=== PATIENT | female | born 1965 | race Caucasian/White ===

== ENCOUNTER 2018-12-21 18:08 | Emergency (ER) | payer OTHER ==
--- NOTE | 2018-12-21 19:28 | C.PDOC ---
History Of Present Illness 53 year old female, with no significant past medical history, presents to ED for evaluation of foreign body sensation noticed around two hours prior to arrival. Patient states she was eating a traditional dish which includes chicken and thyme. While she was eating, patient had a sudden onset of foreign body sensation in her throat. She tried to eat some more rice and drink water without relief, but was able to tolerate PO. Patient attempted to make herself vomit, and states she threw up blood without relief of foreign body sensation. Patient is able to tolerate solid and liquid PO intake without difficulty, but presents to the ED for evaluation because she has pain. She denies shortness of breath, cough, nausea, abdominal pain, throat swelling, rash, headache, dizziness, or any other associated symptoms. Time Seen by Provider: 12/21/18 19:02 Chief Complaint (Nursing): Foreign Body History Per: Patient History/Exam Limitations: no limitations Onset/Duration Of Symptoms: Hrs (2) Current Symptoms Are (Timing): Still Present Additional History Per: Patient Past Medical History Reviewed: Historical Data, Nursing Documentation, Vital Signs Vital Signs: Last Vital Signs Temp 98.5 F 12/21/18 18: Pulse 80 12/21/18 18:19 Resp 16 12/21/18 18: BP 116/74 12/21/18 18: Pulse Ox 98 12/21/18 18:19 - Medical History PMH: No Chronic Diseases Surgical History: No Surg Hx Family History: States: Unknown Family Hx - Social History Hx Tobacco Use: No Hx Alcohol Use: No Hx Substance Use: No - Immunization History Hx Tetanus Toxoid Vaccination: No Hx Influenza Vaccination: No Hx Pneumococcal Vaccination: No Review Of Systems Constitutional: Negative for: Fever, Chills Eyes: Negative for: Vision Change ENT: Positive for: Throat Pain, Other (foreign body sensation to throat ). Negative for: Nose Congestion, Mouth Pain, Mouth Swelling, Throat Swelling Cardiovascular: Negative for: Chest Pain, Palpitations, Light Headedness Respiratory: Negative for: Cough, Shortness of Breath Gastrointestinal: Negative for: Nausea, Vomiting, Abdominal Pain, Diarrhea, Constipation Genitourinary: Negative for: Dysuria, Frequency Musculoskeletal: Negative for: Neck Pain, Back Pain Skin: Negative for: Rash Neurological: Negative for: Weakness, Numbness, Headache, Dizziness Physical Exam - Physical Exam Appears: Well, Non-toxic, No Acute Distress, Other (uncomfortable ) Skin: Normal Color, Warm, Dry Head: Atraumatic, Normacephalic Eye(s): bilateral: Normal Inspection Ear(s): Bilateral: Normal Nose: Normal Oral Mucosa: Moist Tongue: Normal Appearing Lips: Normal Appearing Teeth: Normal Dentition Throat: Normal, No Erythema, No Exudate, No Drooling, Other (no visible foreign body ) Neck: Normal, Normal ROM, No Midline Cervical Tenderness, No Paracervical Tenderness, Supple Chest: Symmetrical, No Deformity, No Tenderness Cardiovascular: Rhythm Regular, No Murmur Respiratory: Normal Breath Sounds, No Rales, No Rhonchi, No Wheezing Gastrointestinal/Abdominal: Soft, No Tenderness, No Guarding, No Rebound Extremity: Normal ROM, Capillary Refill (less than 2 seconds ) Extremity: Bilateral: Atraumatic, No Pedal Edema, Normal Color And Temperature, Normal ROM Pulses: Left Radial: Normal, Right Radial: Normal Neurological/Psych: Oriented x3, Normal Speech, Normal Cognition, Normal Motor, Normal Sensation Gait: Steady ED Course And Treatment O2 Sat by Pulse Oximetry: 98 (on RA ) Pulse Ox Interpretation: Normal - CT Scan/US Neck CT Other Rad Studies (CT/US): Read By Radiologist, Radiology Report Reviewed CT/US Interpretation: FINDINGS: PHARYNX: Unremarkable appearance of the nasopharynx, oropharyx, and hypopharynx. No pharyngeal mucosal based mass lesions. LARYNX: Normal appearance of the larynx. Unremarkable epiglottis. RETROPHARYNGEAL SPACE: No retropharyngeal soft tissue swelling or gas. SALIVARY GLANDS: No salivary gland abnormality evident. Unremarkable appearance of the parotid, submandibular, and sublingual glands. LYMPH NODES: No significant lymphadenopathy. A few non-enlarged submental and bilateral posterior chain lymph nodes are seen. THYROID: The thyroid gland is unremarkable. No nodule is evident. BONES: No acute osseous abnormality. No aggressive appearing osseous lesion. 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 There is evidence of mild degenerative disc disease at C5-6. PARANASAL SINUSES: Total opacification of the left maxillary antrum thought consistent with chronic left maxillary sinusitis. The remaining visualized paranasal sinuses appeared satisfactorily developed and aerated. MISCELLANEOUS: No radiopaque foreign bodies are identified. IMPRESSION: 1. No identification of radiopaque foreign body. 2. Several non-enlarged submental and bilateral posterior chain lymph nodes are present. 3. 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 4. Evidence of some degenerative disc disease at C5-6. 5. Chronic left maxillary sinusitis. Medical Decision Making Medical Decision Making: Plan: * CT Neck Soft Tissue * Lidocaine PO * reassess and disposition On initial exam, patient is in no acute distress and is resting comfortably in stretcher. Tolerating saliva without difficulty, no drooling, no vomiting, no difficulty breathing. Stable vital signs. Appears well. Progress: Xray soft tissue neck ordered by nursing, no abnormality visualized. Will get CT secondary to complaints of hematemesis and pain. CT Neck Soft Tissue ordered and reviewed, shows no foreign body or other abnormality. Pt tolerated PO, both solids and liquids in ED without difficulty. No drooling, no vomiting. Lidocaine PO given prior to discharge, patient reports immediate relief. Advised followup with ENT tomorrow. Pt states she will followup as instructed. Diagnostic testing results and plan of care discussed with patient. Strict instructions given regarding prescription use, importance of followup, and signs/symptoms to return to ER including vomiting, difficulty breathing, worsening pain, or any other new/worsening symptoms. Pt verbalized understanding of discussion. Patient is A&Ox3, ambulating with steady gait, with vital signs stable for discharge. Disposition - Disposition Referrals: Jesus Markham MD [Staff Provider] - Disposition: HOME/ ROUTINE Disposition Time: 21:50 Condition: IMPROVED Additional Instructions: Ibuprofen/tylenol for pain Followup with primary doctor within 2 days Followup with ENT tomorrow Return to ER with any new/worsening symptoms Instructions: Foreign Body, Swallowed, Adult Forms: General Discharge Instructions, [facility] (Italian), Work Excuse - Clinical Impression Clinical Impression: Foreign body sensation in throat - PA / [employer] / Resident Statement MD/DO has reviewed & agrees with the documentation as recorded. - Scribe Statement The provider has reviewed the documentation as recorded by the Scribe (Penny Torres) All medical record entries made by the Scribe were at my direction and personally dictated by me. I have reviewed the chart and agree that the record accurately reflects my personal performance of the history, physical exam, medical decision making, and the department course for this patient. I have also personally directed, reviewed, and agree with the discharge instructions and disposition.
[2018-12-21 22:03] VITALS: BP 110/71; PULSE 78; RESP 20; TEMP 98.2
[2018-12-22 01:45] VITALS: O2SAT 98
--- NOTE | 2018-12-22 09:34 | CT ---
Date of service: 12/21/2018 PROCEDURE: CT NECK WITHOUT CONTRAST HISTORY: rule out foreign body COMPARISON: None available. TECHNIQUE: CT of the neck without intravenous contrast. Coronal and sagittal reformats generated. Radiation dose: Total exam DLP = 515.36 mGy-cm. This CT exam was performed using one or more of the following dose reduction techniques: Automated exposure control, adjustment of the mA and/or kV according to patient size, and/or use of iterative reconstruction technique. FINDINGS: NASOPHARYNX: Unremarkable. SUPRAHYOID NECK: Unremarkable oropharynx, oral cavity, parapharyngeal space and retropharyngeal space. INFRAHYOID NECK: Unremarkable larynx, hypopharynx, and supraglottic space. Vocal cords intact. MASS: None. GLANDS: Parotid and submandibular glands unremarkable. Normal size thyroid gland, without nodule. LYMPH NODES: Shotty subcentimeter level 1 and 2 nodes. No enlarged cervical lymph nodes. CERVICAL SPINE: Degenerative disc disease C5-6. Otherwise unremarkable. OTHER FINDINGS: There is almost complete opacification of left maxillary sinus with curvilinear areas of high attenuation consistent with allergic fungal sinusitis. IMPRESSION: No radiopaque foreign body identified. Probable allergic fungal sinusitis of the left maxillary sinus. Degenerative disc disease of cervical spine at C5-6. The preliminary findings for this examination were reported by [facility] at 9:37 p.m. on 12/21/2018. There is discordance of this report with the preliminary findings. Please note that the diagnosis of allergic fungal sinusitis was not included in the preliminary report of this examination.
--- NOTE | 2018-12-22 13:14 | RAD ---
Date of service: 12/21/2018 HISTORY: Possible foreign body COMPARISON: None. FINDINGS: There is a tiny radiopaque density in the region of the esophagus seen anterior to the C7 vertebral body. IMPRESSION: Possible esophageal foreign body anterior to the C7 vertebral body. Subsequent CT scan of the neck failed to demonstrate corresponding structure.
== END 2018-12-21 22:03 | disposition home or self-care (01) ==
LOC: C.ER 18:08
DX: R09.89 Other specified symptoms and signs involving the circulatory and respiratory systems (principal)

== ENCOUNTER 2019-01-30 12:27 | Emergency (ER) | payer OTHER ==
[2019-01-30 12:39] VITALS: BMI 24.3
[2019-01-30 12:41] VITALS: BP 129/84; PULSE 88; RESP 17; TEMP 99; O2SAT 100
--- NOTE | 2019-01-30 13:44 | C.PDOC ---
History Of Present Illness 53 y/o female c/o facial pain and frontal headache for last 3 days; pt reports she had sinusitis incidentally found on ct scan at ED visit one month ago approx. pt saw Dr Markham. took 2 weeks antibiotics and followed up with Dr Markham once, but missed 2nd f/u visit. pt taking naproxen without relief. denies fever and chills, no nasal drainage. pt also c/o left buttock pain; sts she recently did a split and heard something 'pop'. denies numbness and tingling. denies extremity weakenss. Time Seen by Provider: 01/30/19 13:11 Chief Complaint (Nursing): ENT Problem History Per: Patient History/Exam Limitations: no limitations Onset/Duration Of Symptoms: Days (14) Current Symptoms Are (Timing): Worse Severity: Moderate Past Medical History Reviewed: Historical Data, Nursing Documentation, Vital Signs Vital Signs: Last Vital Signs Temp 99.0 F 01/30/19 12:40 Pulse 88 01/30/19 12:40 Resp 17 01/30/19 12:40 BP 129/84 01/30/19 12:40 Pulse Ox 100 01/30/19 12:40 - Medical History PMH: Rheumatoid Arthritis Family History: States: Unknown Family Hx - Social History Hx Tobacco Use: No Hx Alcohol Use: No Hx Substance Use: No - Immunization History Hx Tetanus Toxoid Vaccination: No Hx Influenza Vaccination: No Hx Pneumococcal Vaccination: No Review Of Systems Constitutional: Negative for: Fever, Chills Eyes: Negative for: Pain ENT: Positive for: Other (face pain) Cardiovascular: Negative for: Chest Pain Respiratory: Negative for: Cough Gastrointestinal: Negative for: Abdominal Pain Musculoskeletal: Positive for: Other (left buttock pain) Skin: Negative for: Rash Neurological: Positive for: Headache. Negative for: Weakness, Numbness Physical Exam - Physical Exam Appears: Non-toxic, No Acute Distress Skin: Dry, No Rash Head: Atraumatic, Normacephalic, Tenderness (frontal and maxillary sinuses) Eye(s): bilateral: Normal Inspection Ear(s): Bilateral: Normal Nose: No Discharge, No Epistaxis Oral Mucosa: Moist Throat: No Erythema, No Exudate Neck: Supple Chest: No Deformity, No Tenderness Cardiovascular: Rhythm Regular Respiratory: No Decreased Breath Sounds, No Accessory Muscle Use, No Wheezing Gastrointestinal/Abdominal: Bowel Sounds, Soft, No Tenderness Back: No Vertebral Tenderness, Other (left lower buttock tender; no swelling noted. ) Extremity: Bilateral: Atraumatic Neurological/Psych: Oriented x3, Normal Speech, Normal Cognition, Normal Motor, Normal Sensation ED Course And Treatment O2 Sat by Pulse Oximetry: 100 Medical Decision Making Medical Decision Making: discussed with Dr Markham; recommends 2 week course of Bactrim DS with 2 week office f/u. for sinusitis. re buttock pain- pt taking nsaids, ambulates with normal gait, minimally tender on exam. Disposition Counseled Patient/Family Regarding: Diagnosis, Need For Followup, Rx Given - Disposition Referrals: Jesus Markham MD [Staff Provider] - Disposition: HOME/ ROUTINE Disposition Time: 14:22 Condition: GOOD Additional Instructions: Please take antibiotics until completed. Take Tylenol or Motrin for pain.l Follow up with Dr Markham in 2 weeks, call for an appointment. Prescriptions: Acetaminophen [Tylenol 325mg tab] 650 mg PO Q6 #30 tab Ibuprofen [Motrin] 600 mg PO TID #30 tab Sulfamethoxazole/Trimethoprim [Bactrim 400-80 mg Tablet] 1 each PO BID #28 tablet Instructions: Sinusitis, Adult (DC) Forms: [facility] (Dutch), General Discharge Instructions - Clinical Impression Clinical Impression: Sinusitis
== END 2019-01-30 14:28 | disposition home or self-care (01) ==
LOC: C.ER 12:27
DX: J32.9 Chronic sinusitis, unspecified (principal)
CPT/HCPCS: 81025; 96372; 99284; J1885

== ENCOUNTER 2019-02-14 12:22 | Outpatient (CLI) | payer OTHER | END 2019-02-14 12:23 | disposition home or self-care (01) | LOC: C.CTH 12:22 | DX: J32.9 Chronic sinusitis, unspecified (principal) ==

== ENCOUNTER 2019-04-03 07:21 | Outpatient (CLI) | payer OTHER | END 2019-04-03 07:22 | disposition home or self-care (01) | LOC: C.PAT 07:21 | DX: J34.2 Deviated nasal septum (principal); J34.3 Hypertrophy of nasal turbinates; J32.0 Chronic maxillary sinusitis; J32.2 Chronic ethmoidal sinusitis ==